=== PATIENT | male | born 1940 | race Two or more races ===

== ENCOUNTER 2019-06-05 09:28 | Emergency (ER) | payer OTHER ==
[~2019-06-05] VITALS: Ht 175.3 cm; Wt 76.7 kg
[2019-06-05] MEDS ORDERED: RIVA10TA PO (09:42)
[2019-06-05] MEDS ORDERED: AMLO5TAB9 PO (09:42)
[2019-06-05] MEDS ORDERED: VALS40TA4 PO (09:42)
[2019-06-05] MEDS ORDERED: PANT40TA2 PO (09:42)
[2019-06-05] MEDS ORDERED: ATOR40TA PO (09:42)
[2019-06-05] MEDS ORDERED: MIRT30TA7 PO (09:42)
[2019-06-05 09:51] LABS: BASOPHILS # (AUTO) 0.1 /CMM (0.0-0.2); BASOPHILS % (AUTO) 0.5 % (0.0-2.0); EOSINOPHILS % (AUTO) 1.3 % (0.0-6.0); HEMATOCRIT 38 % (39-51); HEMOGLOBIN 12.7 g/dL (13.5-17.5); LYMPHOCYTES # (AUTO) 3.8 /CMM (0.8-4.8); LYMPHOCYTES % (AUTO) 22.6 % (20.0-44.0); MEAN CORPUSCULAR HGB CONC 34 g/dl (31.0-36.0); MEAN CORPUSCULAR VOLUME 89 fL (80-96); NEUTROPHILS # (AUTO) 11.7 /CMM (1.8-8.9); NEUTROPHILS % (AUTO) 69.6 % (43.0-81.0); PLATELET COUNT (AUTO) 191 /CMM (150-450); RED BLOOD CELL COUNT(AUTO) 4.21 MIL/uL (4.5-6.0); WHITE BLOOD COUNT (AUTO) 16.8 K/uL (4.3-11.0)
--- NOTE | 2019-06-05 09:51 | NUR ---
PT BROUGHT IN BY PARAMEDICS FOR C/C OF CHEST PAIN STARTING 0730 TODAY WITH NAUSEA AND RADIATING LEFT ARM PAIN. PT HAS 18 G PIV IN LEFT ARM BY PARAMEDICS. PT GIVEN NTG SPRAY WITH ZOFRAN IN THE FIELD ALONG WITH ASA. 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 PT ACCOMPANIED BY SON AND IS INDONESIAN SPEAKING DENIES PAIN AT THIS TIME. LABS DRAWN AND SENT SET UP ON NEWS GATHERING TECHNICIAN(ST) EKG DONE AND PLACED ON O2 AT 2 LPM NC. ROOM AIR SATURATION 93% PT NOTED TO HAVE RIGHT SIDED WEAKNESS RESIDUAL FROM STROKE. WILL CONTINUE TO MONITOR.
[2019-06-05] MEDS ORDERED: ONDANSETRON HCL/PF 4 MG/2 ML VIAL ONE ×2 (09:58→10:08)
[2019-06-05] MEDS ORDERED: ONDANSETRON HCL/PF 4 MG/2 ML VIAL IVP ONE (10:00)
[2019-06-05] MEDS ORDERED: IV NS 0.9% 500 ML BAG IV ONE ×2 (10:00→11:00)
[2019-06-05] MEDS ORDERED: MAG HYDROX/AL HYDROX/SIMETH 30 ML UDC PO ONE (10:00)
[2019-06-05] MEDS ORDERED: LIDOCAINE VISCOUS 2% UD 15 ML UDC MM ONE (10:00)
[2019-06-05] MEDS ORDERED: LIDOCAINE VISCOUS 2% UD 15 ML UDC ONE (10:04)
[2019-06-05] MEDS ORDERED: MAG HYDROX/AL HYDROX/SIMETH 30 ML UDC ONE (10:04)
[2019-06-05 10:14] LABS: CALCIUM, SERUM 9.6 mg/dL (8.5-10.1); CARBON DIOXIDE 23 mmol/L (21-32); CHLORIDE 106 mmol/L (98-107); CREATININE 1.3 mg/dL (0.6-1.3); GLUCOSE 192 mg/dL (74-106); POTASSIUM 3.3 mmol/L (3.5-5.1); SODIUM SERUM 143 mmol/L (136-145); UREA NITROGEN, BLOOD 23 mg/dL (7-18)
[2019-06-05 10:22] LABS: ALKALINE PHOSPHATASE 124 U/L (46-116); ASPARTATE AMINOTRANSFERASE 14 U/L (15-37); BILIRUBIN,DIRECT 0.2 mg/dL (0.0-0.2); BILIRUBIN,TOTAL 0.4 mg/dL (0.2-1.0)
[2019-06-05 10:23] LABS: ALANINE AMINOTRANSFERASE 18 U/L (12-78); ALBUMIN 3.6 g/dL (3.4-5.0); B-TYPE NATRIURETIC PEPTIDE 83 PG/ML (0-125); TOTAL PROTEIN, SERUM 7.4 g/dL (6.4-8.2)
--- NOTE | 2019-06-05 10:57 | NUR ---
urine obtained and sent to lab
[2019-06-05] MEDS: POTASSIUM CL. PREMIX PERIPHER. 50 ML IV SCH ×2 (10:58→12:07)
[2019-06-05 10:59] LABS: APPEARANCE,URINE Clear (CLEAR); BILIRUBIN,URINE Negative (NEGATIVE); BLOOD, URINE Small Ery/uL (NEGATIVE); COLOR,URINE Yellow (YELLOW); KETONES,URINE Negative (NEGATIVE); LEUKOCYTE ESTERASE ,URINE Negative (NEGATIVE); NITRITE, URINE Negative (NEGATIVE); PH,URINE 6.5 (5.0-8.0); PROTEIN,URINE Negative (NEGATIVE); UGLUCOSE Negative (NEGATIVE); UROBILINOGEN,URINE 0.2 EU/dL (0.2)
[2019-06-05] MEDS ORDERED: POTASSIUM CL. PREMIX PERIPHER. 50 ML ONE ×2 (10:59→11:56)
[2019-06-05] MEDS ORDERED: ONDANSETRON HCL/PF - ER 4 MG/2 ML VIAL IV ONE (11:00)
[2019-06-05 11:06] LABS: BACTERIA,URINE Few /HPF (None Seen); SQUAMOUS EPITHELIAL CELL,UR Few /HPF (None Seen); WBC,URINE 0-2 /HPF (0-3)
[2019-06-05] MEDS ORDERED: IV NS 0.9% 1,000 ML BAG IV ONE ×2 (11:30→14:00)
[2019-06-05] MEDS ORDERED: IOHEXOL-300 100 ML VIAL IV ONE (11:38)
[2019-06-05] MEDS ORDERED: IV NS 0.9% 250 ML IV ONE (11:38)
[2019-06-05] MEDS ORDERED: ATROPINE SULFATE 1 MG/10 ML DISP.SYRIN ONE (12:56)
[2019-06-05] MEDS ORDERED: FUROSEMIDE 100 MG/10 ML VIAL ONE (12:56)
--- NOTE | 2019-06-05 13:51 | NUR ---
PT BEING TRANSERFERED TO [facility] [place]. DR WATKINS ADMITTING MD. AWAITING BED AND REPORT NUMBER
[2019-06-05] MEDS ORDERED: PIPERACILLIN /TAZOBACTAM 3.375 G in IV D5W 50 ML IV ONE (14:00)
--- NOTE | 2019-06-05 14:00 | NUR ---
ADDENDUM: Intravenous End Time Documentation: Zosyn 3.375 gram IVPB: start time: 1400 ; end time: 1430 : IV site: LAC # 18 Port # 1
--- NOTE | 2019-06-05 14:21 | NUR ---
SPOKE TO SARY BONNER. SHE IS PUTTING IN THE BED REQUEST AT [facility]
--- NOTE | 2019-06-05 15:58 | NUR ---
time [id number] report [facility] casey
--- NOTE | 2019-06-05 16:30 | NUR ---
[facility] BLS TRANSPORT ETA 90 MIN
[2019-06-05 17:09] VITALS: BP 153/80
--- NOTE | 2019-06-05 17:09 | NUR ---
pt discharged to [facility] by [facility]2.
== END 2019-06-05 17:10 | disposition short-term general hospital (02) ==
LOC: ER 09:29
DX: A41.9 Sepsis, unspecified organism (principal); K52.9 Noninfective gastroenteritis and colitis, unspecified; R11.2 Nausea with vomiting, unspecified; R00.0 Tachycardia, unspecified; I10 Essential (primary) hypertension; E78.5 Hyperlipidemia, unspecified; K21.9 Gastro-esophageal reflux disease without esophagitis; F32.9 Major depressive disorder, single episode, unspecified; Z93.1 Gastrostomy status; Z86.73 Personal history of transient ischemic attack (TIA), and cerebral infarction without residual deficits; Z95.5 Presence of coronary angioplasty implant and graft
CPT/HCPCS: 36415; 71045; 74177; 76700; 80048; 80076; 81001; 83605 ×2; 83690; 83880; 84484; 85025; 85378; 93005; 96361; 96365; 96375; 96376; 99291; J0461; J1940; J2405 ×3; J2543; J3480 ×2; J7030; J7040 ×2; J7050; J7060; Q9967; 81000-TC

== ENCOUNTER 2019-11-03 12:33 | Inpatient (IN) | payer OTHER ==
[~2019-11-03] VITALS: Ht 175.3 cm; Wt 73.0 kg
[~2019-11-03 12:33] MED LIST: AMLO5TAB9 PO; ATOR40TA PO; MIRT30TA7 PO; PANT40TA2 PO; RIVA10TA PO; VALS40TA4 PO
--- NOTE | 2019-11-03 12:43 | NUR ---
PT , and , from home, c/o R buttocks pain s/p fall 3 days ago, pt is aaox0, not in respiratory distress, hooked to monitor, kept rested and comfortable, will continue to monitor.
--- NOTE | 2019-11-03 12:56 | NUR ---
SEEN AND EXAMINED BY .
--- NOTE | 2019-11-03 13:05 | NUR ---
Lupillo holt in [facility] - 11/03/19 at 1353 by SABI MAINSPRING WINDER AND OILER AT [facility] FOR EVAL.
[2019-11-03] MEDS ORDERED: KETOROLAC TROMETHAMINE 15 MG/ML VIAL ONE (13:07)
[2019-11-03] MEDS ORDERED: KETOROLAC TROMETHAMINE INJ 30 MG/ML VIAL IM ONE (13:30)
--- NOTE | 2019-11-03 13:50 | NUR ---
PHYSICIAN OFFICE SPECIALIST AT BEDSIDE FOR XRAY.
[2019-11-03] MEDS ORDERED: TRAZ-182 PO (14:58)
[2019-11-03] MEDS ORDERED: MORPHINE SULFATE INJ 4 MG/ML DISP.SYRIN ONE (15:20)
[2019-11-03] MEDS ORDERED: ONDANSETRON HCL/PF 4 MG/2 ML VIAL ONE (15:20)
[2019-11-03] MEDS ORDERED: ONDANSETRON HCL/PF 4 MG/2 ML VIAL IV ONE (15:30)
[2019-11-03] MEDS ORDERED: MORPHINE SULFATE INJ 2 MG/ML DISP.SYRIN IV ONE (15:30)
[2019-11-03 15:58] LABS: BASOPHILS # (AUTO) 0.1 /CMM (0.0-0.2); BASOPHILS % (AUTO) 0.7 % (0.0-2.0); EOSINOPHILS % (AUTO) 0.5 % (0.0-6.0); HEMATOCRIT 34 % (39-51); HEMOGLOBIN 11.5 g/dL (13.5-17.5); LYMPHOCYTES % (AUTO) 11.3 % (20.0-44.0); MEAN CORPUSCULAR HGB CONC 33 g/dl (31.0-36.0); MEAN CORPUSCULAR VOLUME 89 fL (80-96); MONOCYTES # (AUTO) 0.9 /CMM (0.1-1.30); MONOCYTES % (AUTO) 9.6 % (2.0-12.0); NEUTROPHILS % (AUTO) 77.9 % (43.0-81.0); PLATELET COUNT (AUTO) 184 /CMM (150-450); RED BLOOD CELL COUNT(AUTO) 3.87 MIL/uL (4.5-6.0)
[2019-11-03 16:20] LABS: ALBUMIN 2.8 g/dL (3.4-5.0); CALCIUM, SERUM 8.9 mg/dL (8.5-10.1); CREATININE 1.1 mg/dL (0.6-1.3); POTASSIUM 3.6 mmol/L (3.5-5.1); TOTAL PROTEIN, SERUM 6.8 g/dL (6.4-8.2)
--- NOTE | 2019-11-03 17:16 | NUR ---
spoked rose mary will call back for info
--- NOTE | 2019-11-03 18:10 | NUR ---
TECH AT BEDSIDE FOR US.
--- NOTE | 2019-11-03 18:16 | NUR ---
GOT BED 203
--- NOTE | 2019-11-03 18:25 | NUR ---
REPORT GIVEN TO TONY CHRISTIANSON FOR LOAN.
[2019-11-03] MEDS ORDERED: ONDANSETRON HCL/PF 4 MG/2 ML VIAL IV PRN (18:30)
--- NOTE | 2019-11-03 19:08 | NUR ---
MS RN NOTE PT ARRIVED TO FLOOR VIA GURNEY ACCOMPANIED BY ER STAFF AND FAMILY. PT IN STABLE CONDITION A/O X3, NO SIGNS OF SOB OR DISTRESS, NO C/O PAIN OR N/V. NPO FOR POTENTIAL SX IN AM. IV IN LAC #[address] WITH IVF INFUSING. ALL CURRENT NEEDS ATTENDED TO. BED LOW, LOCKED, UPPER RAILS, AND CALL LIGHT WITHIN REACH. WILL CONT. TO MONITOR. BODY ASSESSED WITH PHOTOS PLACED IN CHART. ALL BELONGINGS ACCOUNTED AND SIGNED FOR. DR. PETERS PLACED ADMISSION ORDERS IN EMR.
[2019-11-03] MEDS: PANTOPRAZOLE 40 MG TABLET.DR PO SCH (19:48)
[2019-11-03] MEDS: ATORVASTATIN 40 MG TABLET PO SCH (19:48)
[2019-11-03] MEDS: VALSARTAN 40 MG TABLET PO SCH (19:48)
--- NOTE | 2019-11-03 19:48 | NUR ---
MS RN NOTE PT SCHEDULED MEDS GIVEN LATE, ARRIVED TO FLOOR AT 1908. WILL ADMIN.
[2019-11-03 20:00] VITALS: BP 158/85
--- NOTE | 2019-11-04 06:26 | NUR ---
MS RN NOTE PT REMAINS IN STABLE CONDITION A/O X3, NO SIGNS OF SOB OR DISTRESS, NO C/O PAIN OR N/V. NPO FOR POTENTIAL SURGERY, CHECKLIST STARTED. IV IN LAC #[address] WITH IVF INFUSING. ALL CURRENT NEEDS ATTENDED TO. BED LOW, LOCKED, UPPER RAILS, AND CALL LIGHT WITHIN REACH. WILL CONT. TO MONITOR AND ENDORSE TO NEXT SHIFT FOR LOAN.
[2019-11-04 06:37] LABS: CALCIUM, SERUM 8.7 mg/dL (8.5-10.1); CREATININE 1.1 mg/dL (0.6-1.3); POTASSIUM 3.5 mmol/L (3.5-5.1)
[2019-11-04 06:39] LABS: BASOPHILS # (AUTO) 0.1 /CMM (0.0-0.2); EOSINOPHILS % (AUTO) 3.9 % (0.0-6.0); HEMATOCRIT 33 % (39-51); LYMPHOCYTES # (AUTO) 0.9 /CMM (0.8-4.8); LYMPHOCYTES % (AUTO) 15.3 % (20.0-44.0); MEAN CORPUSCULAR HGB CONC 34 g/dl (31.0-36.0); MEAN CORPUSCULAR VOLUME 88 fL (80-96); MONOCYTES # (AUTO) 0.7 /CMM (0.1-1.30); MONOCYTES % (AUTO) 11.3 % (2.0-12.0); NEUTROPHILS # (AUTO) 4.2 /CMM (1.8-8.9); NEUTROPHILS % (AUTO) 68.5 % (43.0-81.0); PLATELET COUNT (AUTO) 172 /CMM (150-450); RED BLOOD CELL COUNT(AUTO) 3.72 MIL/uL (4.5-6.0); WHITE BLOOD COUNT (AUTO) 6.1 K/uL (4.3-11.0)
[2019-11-04] MEDS: VALSARTAN 40 MG TABLET PO SCH (08:52)
[2019-11-04] MEDS: PANTOPRAZOLE 40 MG TABLET.DR PO SCH (08:52)
[2019-11-04] MEDS: ATORVASTATIN 40 MG TABLET PO SCH (08:52)
[2019-11-04] MEDS: AMLODIPINE BESYLATE 2.5 MG TABLET PO SCH (10:06)
[2019-11-04] MEDS: IV D5/0.45 NACL 1,000 ML IV PRN (10:06)
[2019-11-04] MEDS: HYDROMORPHONE 1 MG/1 ML DISP.SYRIN IV PRN ×2 (10:06→18:30)
--- NOTE | 2019-11-04 11:45 | NUR ---
MS/RN NOTE THE PATIENT IS RECEIVED IN BED. ALERT AND ORIENTED X2. IN ROOM AIR AND DENIES SOB. RESPIRATION REGULAR AND UNLABORED. DENIES PAIN AT THIS TIME. LAC G 18 PATENT AND SALINE LOCKED. BED LOW AND LOCKED. SIDE RAILS UP X3. CALL LIGHT WITHIN REACH. WILL CONTINUE TO MONITOR.
--- NOTE | 2019-11-04 12:50 | NUR ---
MS/RN NOTE PER ANITA HARRY THE PATIENT IS NOT SCHEDULED FOR SURGERY TODAY AND HE CAN EAT. RECEIVED DIET ORDER FROM DR PETERS (CARDIAC DIET) NOTED AND CARRIED OUT.
[2019-11-04 16:00] VITALS: BP 139/69
--- NOTE | 2019-11-04 18:24 | NUR ---
MS/RN NOTE THE PATIENT IS ALERT AND ORIENTED X2. REMINDERS PROVIDED NEEDED. DENIES PAIN. IN ROOM AIR AND 94%. RESPIRATION REGULAR AND UNLABORED. DENIES SOB. THE PATIENT IS IN NO APPARENT DISTRESS. LAC G 18 PATENT AND IV FLUID INFUSING PER ORDER AND NO S/S INFILTRATION NOTED. BED LOW AND LOCKED. SIDE RAILS UP X3. CALL LIGHT WITHIN REACH. WILL ENDORSE TO WEIGHMASTER LEAD.
[2019-11-04 20:00] VITALS: BP 134/70
[2019-11-05] VITALS (9 sets, daily range): BP systolic 125–163; BP diastolic 57–85
[2019-11-05] MEDS: IV D5/0.45 NACL 1,000 ML IV PRN (06:19)
--- NOTE | 2019-11-05 06:35 | NUR ---
MS RN NOTES AWAKE & RESPONSIVE. NOT IN ANY DISTRESS. NO SOB NOTED. DENIES ANY PAIN OR DISCOMFORT AT THIS TIME. WITH IVF INFUSING WELL. AM CARE DONE. MONITORED ACCORDINGLY. CALL LIGHT WITHIN REACH. BED IN LOWEST POSITION. SR UP X 3 WITH BED ALARM ON FOR SAFETY. WILL ENDORSE TO NEXT SHIFT.
[2019-11-05 06:36] LABS: BASOPHILS # (AUTO) 0.1 /CMM (0.0-0.2); BASOPHILS % (AUTO) 0.8 % (0.0-2.0); EOSINOPHILS % (AUTO) 3.6 % (0.0-6.0); HEMATOCRIT 32 % (39-51); HEMOGLOBIN 10.8 g/dL (13.5-17.5); LYMPHOCYTES # (AUTO) 1.2 /CMM (0.8-4.8); MEAN CORPUSCULAR HGB CONC 34 g/dl (31.0-36.0); MEAN CORPUSCULAR VOLUME 87 fL (80-96); MONOCYTES # (AUTO) 0.7 /CMM (0.1-1.30); MONOCYTES % (AUTO) 10.5 % (2.0-12.0); NEUTROPHILS # (AUTO) 4.3 /CMM (1.8-8.9); NEUTROPHILS % (AUTO) 66.1 % (43.0-81.0); PLATELET COUNT (AUTO) 190 /CMM (150-450); RED BLOOD CELL COUNT(AUTO) 3.66 MIL/uL (4.5-6.0); WHITE BLOOD COUNT (AUTO) 6.4 K/uL (4.3-11.0)
--- NOTE | 2019-11-05 07:20 | NUR ---
MS RN NOTES RECEIVED PATIENT IN BED RESTING COMFORTABLY IN MODERATE HIGH BACK REST. A/O X2. NO SIGNS OF DISTRESS NOTED AT THIS TIME. NOTED WITH IV FLUIDS ON LAC#18 WITH D5 1/2NS RUNNING @75ML/HR. PATENT AND INTACT. SAFETY MEASURES IN PLACE. CALL LIGHT WITHIN REACH. BED IN LOWEST POSITION. SR UP X 3 WITH BED ALARM ON FOR SAFETY. WILL CONTINUE TO MONITOR.
[2019-11-05 07:26] LABS: CALCIUM, SERUM 8.5 mg/dL (8.5-10.1); POTASSIUM 3.5 mmol/L (3.5-5.1)
[2019-11-05] MEDS: PANTOPRAZOLE 40 MG TABLET.DR PO SCH (07:30)
[2019-11-05] MEDS: VALSARTAN 40 MG TABLET PO SCH (08:21)
[2019-11-05] MEDS: AMLODIPINE BESYLATE 2.5 MG TABLET PO SCH (08:21)
[2019-11-05] MEDS: ATORVASTATIN 40 MG TABLET PO SCH (08:24)
--- NOTE | 2019-11-05 08:24 | NUR ---
RN NOTES PATIENT IS NPO FOR SURGERY TODAY. DR. PETERS ON UNIT, ASKED IF OK TO GIVE BP MEDICATION DUE BP OF 163/85. PER MD. OK TO GIVE BP MEDICATION. WILL CONTINUE TO MOMNITOR.
[2019-11-05 08:27] LABS: IRON, SERUM 55 ug/dl (50-175); TOTAL IRON BINDING CAPACITY 187 ug/dl (250-450)
[2019-11-05] MEDS: DOCUSATE SODIUM 100 MG CAPSULE PO SCH ×2 (09:00→16:44)
[2019-11-05 10:50] LABS: FERRITIN 112 ng/mL (8-388)
[2019-11-05] MEDS ORDERED: ANESTHESIA TRAY IN PYXIS 1 EA TRAY MC ONE (15:58)
[2019-11-05] MEDS ORDERED: BUPIVACAINE 0.5 % PF 150 MG/30 ML VIAL ONE (15:58)
[2019-11-05] MEDS ORDERED: BACITRACIN 50000 UNITS/VIAL ONE (15:58)
--- NOTE | 2019-11-05 16:44 | NUR ---
RN NOTES PATIENT WAS PICKED UP BY [facility] STAFF VIA HOSPITAL BED FOR SURGERY, ALL CONSENT SIGNED, CHECKLIST WAS DONE. NOT IN ANY DISTRESS.
[2019-11-05] MEDS ORDERED: FENTANYL PF 100MCG/2ML AMPUL ONE (16:50)
[2019-11-05] MEDS ORDERED: LIDOCAINE 2% JEL 5 ML TUBE ONE (16:50)
[2019-11-05] MEDS ORDERED: HYDROMORPHONE 1 MG/1 ML DISP.SYRIN ONE (18:16)
--- NOTE | 2019-11-05 18:43 | NUR ---
MS RN NOTES PATIENT STILL IN SURGERY, WILL WILL ENDORSE TO WEB PROGRAMMER NURSE FOR LOAN.
--- NOTE | 2019-11-05 19:00 | NUR ---
MS/RN OPENING NOTES PT ARRIVED TO UNIT FROM SURGERY AT THIS TIME, S/P IM RODDING TO RLE. FAMILY AT BEDSIDE. PT IS APHASIC BUT ABLE TO ANSWER YES/NO QUESTIONS. IV TO LAC PATENT AND INTACT. WALKER IN PLACE AND DRAINING TO GRAVITY. DENIES PAIN. NO S/S OF SOB OR ACUTE RESPIRATORY DISTRESS. STRONG DORALIS PEDIS PULSES PALPATED BILATERALLY, GOOD CAP REFILL. PT ABLE TO WIGGLE TOES. BED IN LOW.LOCKED POSITION WITH CALL LIGHT IN REACH. SIDE RAILS UPX3 AND BED ALARM ON FOR SAFETY. WILL CONTINUE TO MONITOR
[2019-11-05] MEDS: IV LR 1000 ML 1,000 ML IV PRN (19:06)
[2019-11-05 19:53] LABS: HEMOGLOBIN 12.1 g/dL (13.5-17.5)
[2019-11-05] MEDS: ACETAMINOPHEN 325 MG TABLET PO PRN (22:58)
[2019-11-06] MEDS: TRAZODONE 50 MG TABLET PO PRN ×2 (00:42→21:55)
[2019-11-06] MEDS: CEFAZOLIN 2 GM in IV D5W 100 ML IV SCH ×2 (00:42→08:26)
--- NOTE | 2019-11-06 00:42 | NUR ---
PT RESTLESS, BUT PT DENIES PAIN AT THIS TIME. AT BEDSIDE, REQUESTING TRAZODONE FOR SLEEP. ADMINISTERED ORDERED.
[2019-11-06] MEDS: HYDROMORPHONE 1 MG/1 ML DISP.SYRIN IV PRN ×2 (01:49→07:58)
--- NOTE | 2019-11-06 01:51 | NUR ---
PT VERY RESTLESS AND MOANING, PULLING ON WALKER CATHETER, C/O SEVERE PAIN. ADMINISTERED PRN DILAUDID ORDERED.
[2019-11-06] MEDS: PANTOPRAZOLE 40 MG TABLET.DR PO SCH (06:35)
[2019-11-06 06:46] LABS: BASOPHILS % (AUTO) 0.5 % (0.0-2.0); EOSINOPHILS % (AUTO) 0.8 % (0.0-6.0); HEMATOCRIT 32 % (39-51); LYMPHOCYTES # (AUTO) 0.7 /CMM (0.8-4.8); MEAN CORPUSCULAR HGB CONC 35 g/dl (31.0-36.0); MEAN CORPUSCULAR VOLUME 87 fL (80-96); MONOCYTES # (AUTO) 0.8 /CMM (0.1-1.30); MONOCYTES % (AUTO) 8.6 % (2.0-12.0); NEUTROPHILS # (AUTO) 7.3 /CMM (1.8-8.9); NEUTROPHILS % (AUTO) 82.1 % (43.0-81.0); PLATELET COUNT (AUTO) 199 /CMM (150-450); RED BLOOD CELL COUNT(AUTO) 3.65 MIL/uL (4.5-6.0); WHITE BLOOD COUNT (AUTO) 8.9 K/uL (4.3-11.0)
[2019-11-06 07:01] LABS: ALBUMIN 2.4 g/dL (3.4-5.0); BILIRUBIN,TOTAL 0.6 mg/dL (0.2-1.0); CALCIUM, SERUM 8.4 mg/dL (8.5-10.1); CREATININE 1.1 mg/dL (0.6-1.3); MAGNESIUM 1.8 mg/dL (1.8-2.4); PHOSPHORUS 3.3 mg/dL (2.5-4.9); POTASSIUM 3.9 mmol/L (3.5-5.1); TOTAL PROTEIN, SERUM 6.3 g/dL (6.4-8.2)
--- NOTE | 2019-11-06 07:10 | NUR ---
RN OPENING NOTES RECEIVED PATIENT IN BED RESTING. AT BEDSIDE. NOT IN ANY FORM OF DISTRESS. NO SOB. DENIED PAIN OR DISCOMFORT AT THIS TIME. IV ACCESS INTACT AND PATENT, NO REDNESS,NO INFILTRATION. KEPT PATIENT SAFE AND COMFORTABLE. BED IN LOW/LOCKED POSITION, SIDERAILS UPX2, CALL LIGHT IN REACH. WILL MONITOR ACCORDINGLY.
--- NOTE | 2019-11-06 07:13 | NUR ---
MS/RN CLOSING NOTES PT AWAKE, AT BEDSIDE. ON 2LPM O2 VIA NC, BREATHING EVEN AND UNLABORED. DENIES SOB AND PAIN AT THIS TIME. SLEPT WELL AFTER PRN DILAUDID. RIGHT HIP SURGICAL DRESSING C/D/I. WALKER IN PLACE AND DRAINING TO GRAVITY. TO BE REMOVED TODAY. IV TO LAC PATENT AND INTACT RUNNING IVF ORDERED. TURNED/REPOSITIONED Q2H. NO SIGNIFICANT CHANGES OVERNIGHT. ALL NEEDS MET AND ATTENDED. BED IN LOW/LOCKED POSITION WITH CALL LIGHT IN REACH. SIDE RAILS UPX3 AND BED ALARM ON FOR SAFETY. PT'S LLE WITH GOOD CAP REFILL, STRONG PULSES BILATERALLY, GOOD SENSATION AND ABLE TO WIGGLE TOES. WILL ENDORSE TO DAY SHIFT RN LOAN.
[2019-11-06] MEDS: IV LR 1000 ML 1,000 ML IV PRN (07:23)
[2019-11-06 08:00] VITALS: BP 114/56
[2019-11-06] MEDS: ATORVASTATIN 40 MG TABLET PO SCH (08:06)
[2019-11-06] MEDS: DOCUSATE SODIUM 100 MG CAPSULE PO SCH ×2 (08:06→17:04)
[2019-11-06] MEDS: VALSARTAN 40 MG TABLET PO SCH (08:06)
[2019-11-06] MEDS: AMLODIPINE BESYLATE 2.5 MG TABLET PO SCH (08:07)
[2019-11-06] MEDS ORDERED: BISACODYL (5 MG) 5 MG TABLET.DR PO ONE (09:30)
--- NOTE | 2019-11-06 10:00 | NUR ---
rn notes: dulcolax tab patient refused dulcolax tablet at this time.
[2019-11-06 16:00] VITALS: BP 134/68
--- NOTE | 2019-11-06 16:00 | NUR ---
rn notes: temp 101.1.. tylenol 650mg given as ordered. cooling measures initiated. will reassess accordingly
[2019-11-06] MEDS: ACETAMINOPHEN 325 MG TABLET PO PRN (17:04)
[2019-11-06] MEDS: RIVAROXABAN 10 MG TABLET PO SCH (17:05)
--- NOTE | 2019-11-06 18:00 | NUR ---
rn notes: rechecked temp= 99.4
--- NOTE | 2019-11-06 19:30 | NUR ---
RN CLOSING NOTES PATIENT IN STABLE CONDITION. ALL NEEDS ATTENDED AND PROVIDED. ALL DUE MEDICATIONS GIVEN ORDERED. TURNED AND REPOSITIONED PATIENT EVERY 2HRS AND NEEDED. KEPT PATIENT SKIN CLEAN AND DRY. BED IN LOW/LOCKED POSITION, SDIERAILS UPX2, CALL LIGHT IN REACH. ENDORSED ACCORDINGLY.
[2019-11-06] MEDS: HYDROCODONE/APAP 5/325MG 1 EACH TABLET PO PRN (21:55)
[2019-11-07] MEDS: IV LR 1000 ML 1,000 ML IV PRN (01:09)
--- NOTE | 2019-11-07 06:30 | NUR ---
RN CLOSING NOTES PATIENT SEEN IN ROOM IN NO APPARENT DISTRESS. AT THE BEDSIDE. NO INCIDENCE LAST NIGHT. RIGHT HIP ICED X1 FOR SWELLING. PATIENT DENIES SEVER PAIN. PATIENT ASSISTED WITH TURNING AND POSSITIONING EVERY 2 HOURS. TURNED AND REPOSITIONED PATIENT EVERY 2HRS. PATIENT SKIN CLEAN AND DRY. BED IN LOW/LOCKED POSITION, SDIERAILS UPX2, CALL LIGHT IN REACH. ENDORSED ACCORDINGLY.
--- NOTE | 2019-11-07 07:46 | NUR ---
rn opening notes Patient received on room air, no sob noted, a/o x2 with family member at bedside. L hand 24 running with LR @ 75 ml per hour. Awaiting for SNF or REHAB placement at this time. Bed at the lowest setting, call light within reach, side rails up x2.
[2019-11-07] MEDS: HYDROCODONE/APAP 5/325MG 1 EACH TABLET PO PRN (07:56)
[2019-11-07 08:00] VITALS: BP 118/59
[2019-11-07] MEDS: DOCUSATE SODIUM 100 MG CAPSULE PO SCH ×2 (08:23→17:32)
[2019-11-07] MEDS: PANTOPRAZOLE 40 MG TABLET.DR PO SCH (08:24)
[2019-11-07] MEDS: AMLODIPINE BESYLATE 2.5 MG TABLET PO SCH (08:24)
[2019-11-07] MEDS: ATORVASTATIN 40 MG TABLET PO SCH (08:24)
[2019-11-07] MEDS: VALSARTAN 40 MG TABLET PO SCH (08:24)
[2019-11-07 08:31] LABS: BASOPHILS # (AUTO) 0.1 /CMM (0.0-0.2); BASOPHILS % (AUTO) 0.8 % (0.0-2.0); EOSINOPHILS % (AUTO) 2.1 % (0.0-6.0); HEMATOCRIT 30 % (39-51); HEMOGLOBIN 10.1 g/dL (13.5-17.5); LYMPHOCYTES # (AUTO) 0.8 /CMM (0.8-4.8); LYMPHOCYTES % (AUTO) 9.1 % (20.0-44.0); MEAN CORPUSCULAR HGB CONC 34 g/dl (31.0-36.0); MEAN CORPUSCULAR VOLUME 88 fL (80-96); MONOCYTES # (AUTO) 0.8 /CMM (0.1-1.30); MONOCYTES % (AUTO) 9.1 % (2.0-12.0); NEUTROPHILS # (AUTO) 6.6 /CMM (1.8-8.9); NEUTROPHILS % (AUTO) 78.9 % (43.0-81.0); PLATELET COUNT (AUTO) 184 /CMM (150-450); RED BLOOD CELL COUNT(AUTO) 3.41 MIL/uL (4.5-6.0); WHITE BLOOD COUNT (AUTO) 8.4 K/uL (4.3-11.0)
[2019-11-07 08:41] LABS: ALBUMIN 2.2 g/dL (3.4-5.0); BILIRUBIN,TOTAL 0.9 mg/dL (0.2-1.0); CALCIUM, SERUM 8.4 mg/dL (8.5-10.1); CREATININE 0.9 mg/dL (0.6-1.3); MAGNESIUM 1.7 mg/dL (1.8-2.4); PHOSPHORUS 2.5 mg/dL (2.5-4.9); POTASSIUM 3.8 mmol/L (3.5-5.1)
[2019-11-07] MEDS ORDERED: HYDR-3972 PO (09:44)
[2019-11-07] MEDS: Magnesium 1GM/D5W 100ML PREMIX 100 ML IV SCH ×2 (11:52→13:05)
[2019-11-07 16:00] VITALS: BP 140/67
[2019-11-07] MEDS: RIVAROXABAN 10 MG TABLET PO SCH (17:32)
--- NOTE | 2019-11-07 18:14 | NUR ---
rn closing notes Patient remains on room air, no sob noted, R hip surgical incision remains free of bleeding. L hand 24 24 LR @ 75 ml per hour. Patient awaiting to be discharged. Report given to the facility. Patient refused photo at this time. Bed at the lowest setting, call light within reach, side rails up x2. Will give report to NOC RN for LOAN bedside.
== END 2019-11-07 18:50 | DRG 481 ==
LOC: ER 12:36 → MEDSG2 18:55
PROVIDERS: ADMIT Internal Medicine; ATTEND Internal Medicine
PROC: 0QS606Z Reposition Right Upper Femur with Intramedullary Internal Fixation Device, Open Approach (ICD-10-PCS; principal; 2019-11-05)
DX: S72.141A Displaced intertrochanteric fracture of right femur, initial encounter for closed fracture (principal); I48.20 Chronic atrial fibrillation, unspecified; I69.351 Hemiplegia and hemiparesis following cerebral infarction affecting right dominant side; N17.9 Acute kidney failure, unspecified; W18.30XA Fall on same level, unspecified, initial encounter; I10 Essential (primary) hypertension; D64.9 Anemia, unspecified; K21.9 Gastro-esophageal reflux disease without esophagitis; M16.11 Unilateral primary osteoarthritis, right hip; E78.5 Hyperlipidemia, unspecified; F03.90 Unspecified dementia, unspecified severity, without behavioral disturbance, psychotic disturbance, mood disturbance, and anxiety; Y93.9 Activity, unspecified; Y92.009 Unspecified place in unspecified non-institutional (private) residence as the place of occurrence of the external cause; Z79.01 Long term (current) use of anticoagulants
CPT/HCPCS: 36415; 71045-TC; 72220-TC; 73502; 73552; 73590-TC; 80048-TC; 80053-TC; 82728-TC; 83540-TC; 83735-TC; 84100-TC; 85025-TC; 85027-TC; 85610-TC; 85730-TC; 86850-TC; 87081-TC; 93307-TC; 97530-TC; G0378; J0690; J1170; J1885; J2270; J2405; J3010; J3475; J3490; J7060; J7120